=== PATIENT | female | born 1955 | race Caucasian/White ===

== ENCOUNTER 2018-09-18 07:55 | Day surgery (SDC) | payer BC ==
[~2018-09-18 07:55] MED LIST: Lactated Ringers 1,000 ML IV SCH; Sodium Chloride 0.9% 10 ML Syringe FLUSH PRN
[2018-09-18] MEDS ORDERED: fentaNYL 250 MCG/5 ML SDV ONE ×2 (08:05→09:10)
[2018-09-18] MEDS ORDERED: Midazolam 1 MG/ML 2 ML SDV ONE ×2 (08:05→09:10)
[2018-09-18] MEDS ORDERED: Propofol 200 MG/20 ML SDV ONE ×2 (08:06→09:10)
--- NOTE | 2018-09-18 09:08 | PCM.PN ---
- General Info Date of Service: 09/18/18 - Review of Systems Systems Review Comment:: 62-year-old female with symptomatic cholelithiasis here for cholecystectomy. She is medically stable to proceed today. She has not had any recent severe pain from the gallbladder. Her recent history and physical is reviewed and no significant changes are noted. I have again discussed the proposed operative procedure with the patient. She appears to understand the expectations risks and possible complications. She agrees to proceed. - Patient Data Vitals - Most Recent: Last Vital Signs Temp 98.2 F 09/18/18 08:09 Pulse 61 09/18/18 08:09 Resp 18 09/18/18 08:09 BP 117/56 L 09/18/18 08:09 Pulse Ox 99 09/18/18 08:09 Weight - Most Recent: 60.328 kg Med Orders - Current: Current Medications Lactated Ringer's (Ringers, Lactated) 1,000 mls @ 125 mls/hr IV ASDIRECTED EDUIN Last Admin: 09/18/18 08:38 Dose: 125 mls/hr Sodium Chloride (Saline Flush) 10 ml FLUSH ASDIRECTED PRN PRN Reason: Keep Vein Open Discontinued Medications Fentanyl (Sublimaze) Confirm Administered Dose 250 mcg .ROUTE .STK-MED ONE Stop: 09/18/18 08:06 Midazolam HCl (Versed 1 Mg/Ml) Confirm Administered Dose 2 mg .ROUTE .STK-MED ONE Stop: 09/18/18 08:06 Propofol (Diprivan 20 Ml) Confirm Administered Dose 200 mg .ROUTE .STK-MED ONE Stop: 09/18/18 08:07 - Problem List Review Problem List Initiated/Reviewed/Updated: Yes - Assessment Assessment:: symptomatic cholelithiasis - Plan Plan:: cholecystectomy
[2018-09-18] MEDS ORDERED: Dexamethasone 10 MG/ML SDV ONE (09:10)
[2018-09-18] MEDS ORDERED: Glycopyrrolate 0.2 MG/ML SDV ONE (09:10)
[2018-09-18] MEDS ORDERED: Neostigmine Methylsulfate 10 MG/10 ML MDV ONE (09:10)
[2018-09-18] MEDS ORDERED: Ondansetron 4 MG/2 ML SDV ONE (09:10)
[2018-09-18] MEDS ORDERED: Succinylcholine 200 MG/10 ML MDV ONE (09:10)
[2018-09-18] MEDS ORDERED: Rocuronium 100 MG/10 ML MDV ONE (09:10)
[2018-09-18] MEDS ORDERED: ceFAZolin 1 GM Vial ONE (09:10)
[2018-09-18] MEDS ORDERED: Bupivacaine 0.25%/EPINEPHrine 1:200,000 30 ML SDV INJECT ONE (09:40)
[2018-09-18] MEDS ORDERED: Bacitracin Oint 1 GM U/D Packet TOP ONE (10:30)
--- NOTE | 2018-09-18 10:42 | PCM.OPNOTE ---
- General Post-Op/Procedure Note Date of Surgery/Procedure: 09/18/18 Operative Procedure(s): Laparoscopic Cholecystectomy Findings: Gallbladder with stones Large smooth right ovarian cyst Pre Op Diagnosis: Symptomatic Cholelithasis Post-Op Diagnosis: Symptomatic Cholelithiasis. Right Ovarian Cyst Anesthesia Technique: General ET Tube Primary Surgeon: Yaw Ortiz Pathology: Gallbladder Output, Urine Amount: 0 EBL in mLs: 10 Complications: None Condition: Good
[2018-09-18] MEDS ORDERED: Ondansetron 4 MG/2 ML SDV IVPUSH PRN (11:10)
[2018-09-18] MEDS ORDERED: Ketorolac 30 MG/ML SDV IVPUSH PRN (11:10)
--- NOTE | 2018-09-19 10:23 | OR ---
Date of Procedure: 09/18/2018 Referring Provider: ZEN Rinaldi PREOPERATIVE DIAGNOSIS: Symptomatic cholelithiasis. POSTOPERATIVE DIAGNOSES: Symptomatic cholelithiasis and right ovarian cyst. OPERATION PERFORMED: Laparoscopic cholecystectomy. INDICATIONS FOR SURGERY: This 62-year-old female has developed symptoms of postprandial abdominal pain and was found to have cholelithiasis. She comes for cholecystectomy. FINDINGS: The gallbladder contained stones, but does not show evidence of acute inflammation at this time. The adjacent liver was normal. The patient has a moderate to large sized smooth-walled right ovarian cyst estimated at approximately 5 cm in size. The uterus and left ovary appeared normal. Other intra-abdominal organs appeared normal as viewed laparoscopically. DESCRIPTION OF PROCEDURE: The patient was taken to the operating room. She was given general endotracheal anesthesia and the abdomen was sterilely prepped and draped. An infraumbilical stab wound incision was made. Through this, a Veress needle was inserted and pneumoperitoneum via this needle to a pressure of 15 mmHg was achieved with carbon dioxide. The Veress needle was then replaced with a 12-mm trocar into which the 10-mm zero-degree laparoscopic camera was inserted. Under direct visualization, 5 mm trocars were placed in the subxiphoid midline and in 2 areas of the right abdomen. All trocar sites were infiltrated with Marcaine prior to insertion. Intra-abdominal inspection was carried out and the ovarian cyst was identified. Attention was then turned to the gallbladder. It was secured with grasping forceps placed through the lateral trocars and retracted superiorly and anteriorly. The peritoneum and fatty tissue overlying the cystic duct and cystic arteries were cleared and dissection in the triangle of Calot identified two cystic arteries, which were isolated, doubly clipped, and divided. Once the triangle of Calot had been completely cleared and the cystic duct was clearly and positively identified, it was milked and then doubly clipped and divided near the gallbladder with great care being used to avoid any injury or compromise to the common bile duct. The gallbladder was then dissected free from the undersurface of the liver using the hook cautery device. The gallbladder was then extracted from the abdomen without difficulty. Re-inspection of the operative region showed good hemostasis to be intact and no sign of any complication. The trocars were removed under direct visualization and the pneumoperitoneum was evacuated. The fascia of the umbilical trocar site was closed with a [id number] 0 Vicryl suture. The wounds were irrigated with Betadine and saline solution. Skin incisions approximated with interrupted 4-0 Vicryl in a subcuticular stitch. Steri-Strips and benzoin were applied. Antibiotic ointment was placed and this was followed by sterile dry dressings. The patient was awakened, extubated, and taken from the operating room in satisfactory condition. ESTIMATED BLOOD LOSS: 10 mL. COMPLICATIONS: None. PROGNOSIS: Good. CANDACE Ortiz MD /[id number] MTDD
--- NOTE | 2018-09-23 07:29 | PCM.SN ---
- Free Text/Narrative Note: Anesthesia note Patient recieved robinal 0.6mg and 3.0mg of neostigmine at the end of the case for reversal. Whitley Soriano [employer]
== END 2018-09-18 14:47 | disposition home or self-care (01) ==
LOC: LL.SDS 07:55
PROVIDERS: ATTEND Surgery
DX: K81.1 Chronic cholecystitis (principal); N83.201 Unspecified ovarian cyst, right side; F32.9 Major depressive disorder, single episode, unspecified; F41.9 Anxiety disorder, unspecified; E78.00 Pure hypercholesterolemia, unspecified; E78.5 Hyperlipidemia, unspecified; Z79.899 Other long term (current) drug therapy
CPT/HCPCS: J0330; J0690; J1100; J1885; J2250; J2405; J2704; J2710; J3010; J3490; J7120

== ENCOUNTER 2024-09-03 09:55 | Day surgery (SDC) | payer MEDICARE ==
[~2024-09-03 09:55] MED LIST changes: -Lactated Ringers 1,000 ML IV SCH; +Propofol 200 MG/20 ML SDV ONE
[2024-09-03] MEDS: Lactated Ringers 1,000 ML IV SCH (10:38)
== END 2024-09-03 11:44 ==
LOC: LL.SDS 09:55
PROVIDERS: ATTEND Surgery
DX: Z12.11 Encounter for screening for malignant neoplasm of colon (principal); R19.5 Other fecal abnormalities; F33.9 Major depressive disorder, recurrent, unspecified; E78.5 Hyperlipidemia, unspecified; Z79.899 Other long term (current) drug therapy
CPT/HCPCS: J2704; J7120